=== PATIENT | female | born 1985 | race African-American/Black ===

== ENCOUNTER 2017-05-19 22:43 | Emergency (ER) | payer SELFPAY ==
[~2017-05-19] VITALS: Ht 160 cm; Wt 83.9 kg
[2017-05-19 23:10] VITALS: BP 108/73
[2017-05-19] MEDS ORDERED: Morphine Sulfate 4mg/ml Inj IVP ONE (23:30)
[2017-05-19 23:57] LABS: APPEARANCE,URINE CLEAR; KETONES,URINE NEGATIVE (NEGATIVE); LEUKOCYTE ESTERASE ,URINE 3+ (NEGATIVE); NITRITE,URINE NEGATIVE (NEGATIVE); PH,URINE 7 (4.5-8.0); PROTEIN,URINE NEGATIVE (NEGATIVE); UROBILINOGEN,URINE NORMAL MG/DL (0.0-1.0)
[2017-05-20 00:06] LABS: ALANINE AMINOTRANSFERASE 18 U/L (3-33); ALBUMIN/GLOBULIN RATIO 0.9 (1.0-2.7); ANION GAP 14 (5-15); ASPARTATE AMINO TRANSFERASE 22 U/L (5-40); CARBON DIOXIDE 24 mEQ/L (20-30); CHLORIDE 101 mEQ/L (98-107); CREATININE 0.7 mg/dL (0.5-0.9); GLOMERULAR FILTRATION RATE > 60 mL/min (>60); HEMOLYSIS 0; POTASSIUM 3.7 mEQ/L (3.4-4.9); SODIUM 139 mEQ/L (135-145); TOTAL PROTEIN 7.8 g/dL (6.6-8.7)
[2017-05-20 00:14] LABS: BASOPHILS % (AUTO) 0.6 % (0.0-2.0); EOSINOPHILS % (AUTO) 0.3 % (0.0-3.0); LYMPHOCYTES % (AUTO) 11.7 % (20.0-45.0); MEAN CORPUSCULAR HEMOGLOBIN 28.5 PG (27.0-31.0); MEAN CORPUSCULAR HGB CONC 31.9 G/DL (32.0-36.0); MEAN CORPUSCULAR VOLUME 89 FL (80-99); MEAN PLATELET VOLUME 7.2 FL (6.5-10.1); MONOCYTES % (AUTO) 2.9 % (1.0-10.0); NEUTROPHILS % (AUTO) 84.6 % (45.0-75.0); PLATELET COUNT 381 K/UL (150-450); RED BLOOD COUNT 4.38 M/UL (4.20-5.40); RED CELL DISTRIBUTION WIDTH 14.8 % (11.6-14.8); WHITE BLOOD COUNT 8.2 K/UL (4.8-10.8)
[2017-05-20 00:20] LABS: INR 0.9 (0.9-1.1); PROTHROMBIN TIME 9.9 SEC (9.30-11.50)
[2017-05-20 00:26] LABS: BACTERIA,URINE FEW /HPF; MUCUS,URINE FEW /LPF (NONE/OCC); SQUAMOUS EPITHELIAL CELL,UR FEW /LPF (NONE/OCC); TRICHOMONAS,URINE FEW /HPF
[2017-05-20 01:00] VITALS: BP 115/60
[2017-05-20 02:00] VITALS: BP 130/81
[2017-05-20] MEDS ORDERED: metroNIDAZOLE 500mg 100 ML IVPB ONE (02:00)
[2017-05-20] MEDS ORDERED: Ketorolac 30mg Inj IV ONE (02:00)
--- NOTE | 2017-05-20 02:21 | Emergency Room Report ---
History of Present Illness General Chief Complaint: Abdominal Pain Source: Patient Present Illness HPI Presents with abdominal pain and fever with headache. She is 2 weeks . Had vaginal delivery. She states she had of bacterial vaginosis before the delivery but states that the strep test were negative. She states she was not completely compliant with antibiotics before delivery. There were no difficulties with delivery. She needed to get sutures. She states that she been treated for Trichomonas multiple times. Also her partners been treated for trichomonas. She does have a discharge which is somewhat foul. No significant vaginal bleeding at this time. She has some dysuria also. She's not had kidney infections before. No URI sy, NVD, joint pain. She is breast feeding. No breast tenderness. Allergies: Coded Allergies: CIPROFLOXACIN (Verified Allergy, Unknown, 05/19/17) Patient History Past Medical History: see triage record Social History Narrative aunt is watching daughter Last Menstrual Period: two week post Now: No : 2 Para: 2 Reviewed Nursing Documentation: PMH: Agreed, PSxH: Agreed Nursing Documentation-PMH Past Medical History: No History, Except For Review of Systems All Other Systems: negative except mentioned in HPI Physical Exam Vital Signs Date Time Temp Pulse Resp B/P Pulse Ox O2 Delivery O2 Flow Rate FiO2 05/19/17 22:55 100.0 118 20 108/73 97 Room Air Sp02 EP Interpretation: reviewed, normal General Appearance: well appearing, no apparent distress, GCS 15 Head: normocephalic Eyes: bilateral eye normal inspection ENT: moist mucus membranes Neck: supple Respiratory: lungs clear, normal breath sounds Cardiovascular #1: regular rate, rhythm Cardiovascular #2: 2+ radial (R) Gastrointestinal: normal inspection, normal bowel sounds, non tender, no mass, non-distended Genitourinary: other - foul odor, no bleed, min vag tenderness, normal uterus not tender. Some adnexal tenderness R Musculoskeletal: back normal, gait/station normal, normal range of motion Neurologic: alert, oriented x3, grossly normal Skin: normal inspection, warm/dry Medical Decision Making Diagnostic Impression: Primary Impression: Abdominal pain Qualified Codes: R10.31 - Right lower quadrant pain Additional Impressions: UTI (urinary tract infection) Qualified Codes: N30.00 - Acute cystitis without hematuria Infection due to trichomonas 2 weeks Breast-feeding ER Course Patient with fever and RLQ pain 2 weeks post . Ddx: endometritis, appi, diverticulitis, UTI amongst others. Due to the location of pain, CT abdomen/ pelvis indicated (complex patient). Also labs, UA. Treatment with IV hydration , analgesia. Labs with normal WBC, pyuria. Wet mount with trichamonas. Antibiotics begun. CT excludes appi. Uterine enlargement and thickening. See report below. Suspect endometritis. Based on exam and clinical course (improved), patient felt to be stable for outpatient observation and treatment and knows she needs to see Ob in next 1-2 days. Laboratory Tests Test 05/19/17 23:00 05/19/17 23:20 Urine Color Pale yellow Urine Appearance Clear Urine pH 7 (4.5-8.0) Urine Specific [place] 1.005 (1.005-1.035) Urine Protein Negative (NEGATIVE) Urine Glucose (UA) Negative (NEGATIVE) Urine Ketones Negative (NEGATIVE) Urine Occult Blood 4+ (NEGATIVE) H Urine Nitrite Negative (NEGATIVE) Urine Bilirubin Negative (NEGATIVE) Urine Urobilinogen Normal MG/DL (0.0-1.0) Urine Leukocyte Esterase 3+ (NEGATIVE) H Urine RBC 2-4 /HPF (0 - 2) H Urine WBC 10-15 /HPF (0 - 2) H Urine Squamous Epithelial Cells Few /LPF (NONE/OCC) Urine Bacteria Few /HPF (NONE) Urine Mucus Few /LPF (NONE/OCC) H Urine Trichomonas Few /HPF (NONE) H White Blood Count 8.2 K/UL (4.8-10.8) Red Blood Count 4.38 M/UL (4.20-5.40) Hemoglobin 12.5 G/DL (12.0-16.0) Hematocrit 39.1 % (37.0-47.0) Mean Corpuscular Volume 89 FL (80-99) Mean Corpuscular Hemoglobin 28.5 PG (27.0-31.0) Mean Corpuscular Hemoglobin Concent 31.9 G/DL (32.0-36.0) L Red Cell Distribution Width 14.8 % (11.6-14.8) Platelet Count 381 K/UL (150-450) Mean Platelet Volume 7.2 FL (6.5-10.1) Neutrophils (%) (Auto) 84.6 % (45.0-75.0) H Lymphocytes (%) (Auto) 11.7 % (20.0-45.0) L Monocytes (%) (Auto) 2.9 % (1.0-10.0) Eosinophils (%) (Auto) 0.3 % (0.0-3.0) Basophils (%) (Auto) 0.6 % (0.0-2.0) Prothrombin Time 9.9 SEC (9.30-11.50) Prothrombin Time INR 0.9 (0.9-1.1) PTT 29 SEC (23-33) Sodium Level 139 mEQ/L (135-145) Potassium Level 3.7 mEQ/L (3.4-4.9) Chloride Level 101 mEQ/L (98-107) Carbon Dioxide Level 24 mEQ/L (20-30) Anion Gap 14 (5-15) Blood Urea Nitrogen 10 mg/dL (7-23) Creatinine 0.7 mg/dL (0.5-0.9) Estimate Glomerular Filtration Rate > 60 mL/min (>60) Glucose Level 106 mg/dL (74-106) Lactic Acid Level 1.00 mmol/L (0.66-2.22) Calcium Level 10.0 mg/dL (8.6-10.2) Total Bilirubin 0.3 mg/dL (0.0-1.2) Aspartate Amino Transferase (AST) 22 U/L (5-40) Alanine Aminotransferase (ALT) 18 U/L (3-33) Alkaline Phosphatase 135 U/L (35-104) H Total Protein 7.8 g/dL (6.6-8.7) Albumin 3.8 g/dL (3.5-5.2) Globulin 4.0 g/dL Albumin/Globulin Ratio 0.9 (1.0-2.7) L Microbiology Date/Time Source Procedure Growth Status 05/19/17 23:57 Vaginal Wet Prep - Final Complete CT/MRI/US Diagnostic Results CT/MRI/US Diagnostic Results : Imaging Test Ordered: abd pelvis Impression Impression: No acute abnormality Nonspecific mild enlargement of the uterus and thickening of the endometrium. Correlate with menstrual phase. Bilateral L5 spondylolysis and minimal grade 1 L5 on S1 spondylolisthesis Subcentimeter low-attenuation liver lesions, too small to characterize, most likely benign simple cysts or bile hamartomas. No further followup necessary Last Vital Signs Date Time Temp Pulse Resp B/P Pulse Ox O2 Delivery O2 Flow Rate FiO2 05/20/17 03:26 100.0 66 17 115/65 97 Room Air Status: improved Disposition: HOME, SELF-CARE Condition: Improved Scripts Cephalexin* (KEFLEX*) 500 Mg Capsule 500 MG ORAL Q6H, #28 CAP 0 Refills Prov: Peterson Montes M.D. 05/20/17 Metronidazole* (FLAGYL*) 500 Mg Tablet 500 MG ORAL EVERY 8 HOURS, #21 TAB Prov: Peterson Montes M.D. 05/20/17 Metronidazole* (FLAGYL*) 500 Mg Tablet 500 MG ORAL BID, #14 TAB Prov: Peterson Montes M.D. 05/20/17 Ibuprofen* (MOTRIN*) 600 Mg Tablet 600 MG ORAL Q6H Y for For Pain, #20 TAB Prov: Peterson Montes M.D. 05/20/17 Tramadol Hcl* (ULTRAM*) 50 Mg Tablet 50 MG ORAL Q6H Y for For Pain, #12 TAB 0 Refills Prov: Peterson Montes M.D. 05/20/17 Referrals: NOT CHOSEN CELINA/,REFERRING (PCP) Peterson Montes M.D. May 20, 2017 02:21
[2017-05-20] MEDS ORDERED: FLAGYL500 MG ORAL (02:32)
[2017-05-20] MEDS ORDERED: TRAMADOL HCL50 MG ORAL (02:32)
[2017-05-20] MEDS ORDERED: KEFLEX500 MG ORAL (02:32)
[2017-05-20] MEDS ORDERED: METRONIDAZOLE500 MG ORAL (02:32)
[2017-05-20] MEDS ORDERED: IBUPROFEN600 MG ORAL (02:32)
[2017-05-20 03:15] VITALS: BP 115/65
[2017-05-20 03:26] VITALS: BP 115/65
--- NOTE | 2017-05-20 09:28 | Diagnostic Imaging Report ---
Clinical Indication: Abdominal pain Technique: Patient given oral contrast. IV administration nonionic contrast. Venous phase spiral acquisition obtained through the abdomen and pelvis. Multiplanar reconstructions were generated. Total dose length product 800 mGycm. CTDIvol(s) 16 mGy. Dose reduction achieved using automated exposure control Comparison: None Findings: As the appendix is normal. There is no evidence of diverticulosis or diverticulitis. No small bowel distention. No small bowel wall thickening. No free or loculated intraperitoneal air or fluid. Distal esophagus, stomach, duodenum are unremarkable. Gallbladder, bile ducts are unremarkable. The liver demonstrates numerous subcentimeter low-attenuation lesions are too small to characterize. The pancreas, spleen, adrenals, kidneys are unremarkable. No mesenteric or retroperitoneal mass or adenopathy. The uterus is prominent in size, and the endometrium is also prominent, measuring 16 mm thick. No focal myometrial abnormality demonstrated. No pelvic mass or adenopathy. The included lung bases are clear. The bones are remarkable for the presence of bilateral L5 spondylolysis, minimal grade 1 L5 on S1 spondylolisthesis. Impression: No acute abnormality Nonspecific mild enlargement of the uterus and thickening of the endometrium. Correlate with menstrual phase. Bilateral L5 spondylolysis and minimal grade 1 L5 on S1 spondylolisthesis Subcentimeter low-attenuation liver lesions, too small to characterize, most likely benign simple cysts or bile hamartomas. No further followup necessary This agrees with the preliminary interpretation provided overnight by [facility] teleradiology service. The CT scanner at [facility] is accredited by the [employer] and the scans are performed using protocols designed to limit radiation exposure to as low as reasonably achievable to attain images of sufficient resolution adequate for diagnostic evaluation.
== END 2017-05-20 03:25 | disposition home or self-care (01) ==
LOC: EMR 23:05
DX: N30.00 Acute cystitis without hematuria (principal); R10.31 Right lower quadrant pain; A59.9 Trichomoniasis, unspecified; Z88.8 Allergy status to other drugs, medicaments and biological substances; M47.896 Other spondylosis, lumbar region
CPT/HCPCS: 36415; 74177; 80053; 81003; 83605; 85025; 85610; 85730; 87040; 87070; 87086; 87210; 96360; 96374; 96375; 99284; J1885; J2270; J2405; Q9967